=== PATIENT | male | born 1965 | race Two or more races ===

== ENCOUNTER 2017-05-19 14:43 | Emergency (ER) | payer BC, OTHER ==
[~2017-05-19] VITALS: Ht 167.6 cm; Wt 65.2 kg
[2017-05-19] MEDS ORDERED: SODIUM CHLORIDE 0.9% 1,000 ML IV ONE (15:02)
[2017-05-19] MEDS ORDERED: ONDANSETRON 2MG/ML, 2ML ONE (15:28)
[2017-05-19] MEDS ORDERED: SODIUM CHLORIDE 0.9% 1,000ML IVBOLUS ONE (15:30)
[2017-05-19] MEDS ORDERED: ASPIRIN 81 MG TABLET CHEW PO ONE (15:30)
[2017-05-19] MEDS ORDERED: ONDANSETRON 2MG/ML, 2ML IVPush ONE (15:30)
[2017-05-19 15:33] LABS: ASPARTATE AMINO TRANSFERASE 20 U/L (15-37); BLOOD UREA NITROGEN 16 mg/dL (7-18)
[2017-05-19] MEDS ORDERED: MORPHINE SULFATE 4 MG/ML, 1ML ONE (15:37)
[2017-05-19 15:38] LABS: IS PT STATUS REG ER OR PRE ER? YES
[2017-05-19] MEDS ORDERED: OMNIPAQUE 350 MG/ML, 100ML BOTTLE ONE (17:12)
[2017-05-19 18:13] VITALS: BP 122/76
== END 2017-05-19 19:30 | disposition home or self-care (01) ==
LOC: ED 18:21
DX: R10.13 Epigastric pain (principal); R10.11 Right upper quadrant pain; R10.32 Left lower quadrant pain; R11.2 Nausea with vomiting, unspecified; E86.0 Dehydration
CPT/HCPCS: 36415; 74022; 74177; 80053; 83690; 84484; 85025; 85610; 85730; 93005; 96361; 96374; 99285; J2405; J7030; Q9967